=== PATIENT | female | born 1990 | race Caucasian/White ===

== ENCOUNTER 2024-06-18 16:04 | Emergency (ER) | payer OTHER, SELFPAY ==
[2024-06-18 16:15] VITALS: BP 118/70; PULSE 87; RESP 16; TEMP 36.8; O2SAT 98; BMI 31.2
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
[2024-06-18 16:59] LABS: MANUAL DIFF FLAG NO
[2024-06-18 17:01] LABS: Basophils Percent Auto 0.2 % (0-2); Eosinophils Absolute Auto 0.2 X10*3/uL (0.0-0.4); Eosinophils Percent Auto 1.9 % (0-4); Hematocrit 37.3 % (37.0-47.0); Hemoglobin 12.4 g/dl (12.0-16.0); Imm Gran Abs Auto 0.03 X10*3/uL (0.00-0.03); Imm Gran Pct Auto 0.4 % (0.0-0.4); Lymphocytes Percent Auto 24.2 % (20-40); Mean Corpuscular HGB Conc 33.2 g/dl (31.0-35.0); Mean Corpuscular Hemoglobin 26.7 pg (27.0-33.0); Mean Corpuscular Volume 80.4 fL (80.0-98.0); Mean Platelet Volume 10.5 fL (9.4-12.3); Monocytes Absolute Auto 0.5 X10*3/uL (0.1-1.2); Monocytes Percent Auto 6.2 % (2-11); Neutrophils Absolute Auto 5.5 x10*3/uL (2.0-8.3); Neutrophils Percent Auto 67.1 % (45-73); Platelet Count 332 X10*3/uL (160-400); Red Blood Count 4.64 X10*6/uL (4.20-5.50); Red Cell Distribution Width 13.4 % (11.0-16.0); White Blood Count 8.3 X10*3/uL (4.8-10.8)
[2024-06-18 17:03] LABS: Appearance Urine Clear; Color Urine Yellow; Glucose Urine UA Negative (Negative); Leukocyte Esterase Urine Negative (Negative); Nitrite Urine Negative (Negative); PH 5.5 (5.0-9.0); Urine Blood Negative (Negative); Urine Ketones Trace mg/dL (Negative); Urine Protein Negative (Neg-Trace)
[2024-06-18 17:04] LABS: UPreg QC Valid YES; Urine Pregnancy NEGATIVE (NEGATIVE)
[2024-06-18 17:22] LABS: Alanine Aminotransferase 26 U/L (0-31); Albumin Level 4.3 g/dL (3.5-5.0); Alkaline Phosphatase 85 U/L (39-117); Anion Gap 12 (12-20); Aspartate Amino Transferase 25 U/L (5-31); Bilirubin Total 0.3 mg/dL (0.0-1.0); Blood Urea Nitrogen 13 mg/dL (9-16); Calcium 9.6 mg/dL (8.4-10.2); Carbon Dioxide 23 mmol/L (22-29); Chloride 106 mmol/L (96-108); Creatinine Clr Calc Pharmacy 107.7; Estimated Glomerular Filt Rate > 60; Glucose Random 72 mg/dL (60-115); Potassium 4.1 mmol/L (3.3-5.1); Sodium 137 mmol/L (135-145)
[2024-06-18 17:24] LABS: HCG Quantitative < 2 mIU/mL
[2024-06-18] MEDS: cefTRIAXone sodium 500 MG, Lidocaine HCl 1 % MPF 1 ML IM (18:33)
[2024-06-18] MEDS: metroNIDAZOLE 500 MG TABLET PO (18:33)
[2024-06-18] MEDS: Ondansetron ODT 4 MG TAB.RAPDIS TRANSLINGU (18:33)
[2024-06-18] MEDS: Doxycycline Monohydrate 100 MG CAPSULE PO (18:33)
[2024-06-18] MEDS: levonorgestreL 1.5 MG TABLET PO (18:33)
[2024-06-18 18:37] VITALS: BP 118/70; PULSE 87; RESP 16; TEMP 36.8; O2SAT 98
[2024-06-19 03:16] LABS: CT PCR NOT DETECTED (Not Detect.); NG PCR NOT DETECTED (Not Detect.)
[2024-06-19 08:05] LABS: HBS Num1 179.88 mIU/mL (0-7.99); HBsAGNum1 0.36 S/CO (0.00-0.99); HIV AB/AG Nonreactive (Nonreactive); HIV Num 1 0.06 S/CO (0.00-0.99); Hepatitis A Antibody IgM 0.43 Index (0-0.79); Hepatitis B Core Antibody Nonreactive (Nonreactive); Hepatitis B Surface Antigen Negative (Negative); ~Hepatitis A Antibody IgM Nonreactive (Nonreactive); ~Hepatitis B Surface Antibody REACTIVE (Nonreactive); ~Hepatitis C Antibody Nonreactive (Nonreactive)
[2024-06-19 08:09] LABS: Bacterial Vaginosis PCR POSITIVE (Negative); Candida Group PCR NOT DETECTED (Not Detect); Candida glab krusei PCR NOT DETECTED (Not Detect); Trichomonas vaginalis PCR NOT DETECTED (Not Detect)
== END 2024-06-18 18:54 | disposition home or self-care (01) ==
PROVIDERS: Nurse Practitioner Family; Physician Assistant Medical; Emergency Provider Internal Medicine
DX: T76.21XA Adult sexual abuse, suspected, initial encounter (principal); Z20.2 Contact with and (suspected) exposure to infections with a predominantly sexual mode of transmission; Z20.828 Contact with and (suspected) exposure to other viral communicable diseases; Z79.899 Other long term (current) drug therapy
CPT/HCPCS: 36415; 80053; 81003; 81025; 81515; 84702; 85025; 86704; 86706; 86709; 86803; 87340; 87389; 87491; 87591; 96365; 96372; 99282; 99284; J0696; J2003

== ENCOUNTER 2025-03-08 09:45 | Emergency (ER) | payer OTHER, SELFPAY ==
--- NOTE | ~2025-03-08 | US_ITS ---
EXAMINATION: US TRIPLEX LOWER EXTREMITY, RIGHT CLINICAL INFORMATION: pain and swelling, worse with ambulation, right lower extremity COMPARISON: None available. TECHNIQUE: Color-flow triplex imaging with spectral analysis and compression Doppler were performed on the right lower extremity. FINDINGS: Respiratory variation, normal compression and augmented flow are noted throughout the right lower extremity. The visualized common femoral vein, superficial femoral vein, profunda femoral vein, popliteal vein and midcalf peroneal and posterior tibial venous segments show no evidence of deep venous thrombosis. US/US venous duplex LE RT IMPRESSION: No evidence of deep venous thrombosis involving the right lower extremity. Electronically signed by: Lucian Funes MD 03/08/2025 12:09 PM EDT
[2025-03-08 10:03] VITALS: BP 123/68; PULSE 94; RESP 18; TEMP 36.5; O2SAT 98; BMI 27.0
--- NOTE | 2025-03-08 10:03 | ED.GENADULT ---
HPI - General Adult General Chief complaint: Abdominal Pain Stated complaint: abd pain, r leg pain Time Seen by Provider: 03/08/25 10:54 Source: patient Mode of arrival: ambulatory Limitations: no limitations History of Present Illness ED Provider: HPI narrative: 34-year-old woman, presenting with multiple complaints, what she is addressed with me as mostly mid back pain with pulling to her right leg in the back of the knee, she was concerned whether she has a blood clot, she recently saw her PCP and I reviewed her blood work on March 06 and she had an ultrasound of the gallbladder did not reveal any acute findings, she has hepatic steatosis, she smokes tobacco, no drug use, tries to be cautious with anti-inflammatories, currently on Zepbound. No IV drug use, fevers or chills, she is not on control pills. Related Data Previous Rx's ?Medication ?Instructions ?Recorded doxycycline hyclate 100 mg tablet 100 mg PO BID 14 days #28 tabs 06/18/24 metronidazole 500 mg tablet 500 mg PO BID #14 tabs 06/18/24 lidocaine 4 % topical patch 1 patch topical DAILY PRN pain 5 03/08/25 (Aspercreme (lidocaine)) days #10 ea Allergies Allergy/AdvReac Type Severity Reaction Status Date / Time No Known Allergies Allergy Verified 03/08/25 10:06 Review of Systems Constitutional: Constitutional: Reports as per [facility] Social History Social History Advance Directives: No Advance Directives Information Provided: No Do you have a plan to hurt others: No Plan Physical Exam ED Vital Signs: Vital Signs - 24 hr 03/08/25 10:03 03/08/25 12:28 Temperature 97.7 F Pulse Rate 94 81 Respiratory Rate 18 16 Blood Pressure 123/68 108/67 Pulse Oximetry 98 100 Oxygen Delivery Method Room Air Room Air BMI result Body Mass Index 27.0 Const Other: General: ?Appears of stated age ? ?PERRLA, EOMI, MMM, ? Neck: Supple, no LAD ? ?CV: RRR, no obvious murmurs appreciated ? ?Resp: ?No wheezing rales rhonchi no stridor moving air well ? Abd: ?Bowel sounds are present, no tenderness no rebound no rigidity, no CVA tenderness ? ?MSK: FROM, strength 5/5 all extremities, I did not appreciate asymmetric edema, negative straight leg raise test, has good power bilateral lower extremities, has been ambulatory, somewhat kyphotic, with mid back paraspinal tenderness more to the right without midline tenderness or step-offs ? Skin: Warm, dry, intact, ? ?Neuro: ?Alert and oriented x3, moving upper and lower extremities symmetrically, no obvious facial asymmetry noted, cranial nerves 2-12 intact Course Course Course Narrative: This is a rapid medical exam performed by Matthew Jasso NP: Additional HPI, ROS, PE not included below will be deferred to primary provider. Patient is a 34y/o F presenting to the ED for evaluation of RUQ abd pain and nausea x 2 weeks as well as right calf pain which began at 3pm yesterday, worse with ambulation. Has seen PCP regarding the abdominal pain, told she had fatty liver based on u/s, told GB and pancreas looked ok. Plan: labs, u/s RLE Medications Administered Discontinued Medications Generic Name Dose Route Start Last Admin Trade Name Freq PRN Reason Stop Dose Admin Lidocaine 1 patch 03/08/25 11:36 03/08/25 12:06 Lidocaine 4 % Patch Adh..Patch TRANSDERMA 03/08/25 11:37 1 patch ONCE ONE Administration Protocol Lidocaine HCl 10 ml 03/08/25 11:36 03/08/25 12:07 Lidocaine Hcl 1 % 20 Ml Vial INFILTRATI 03/08/25 11:37 10 ml ONCE ONE Administration Procedures Procedure Narrative Procedure Narrative: CPT 88486: ?1 or 2 muscle groups injected single or multiple trigger points Time-out: A time-out was performed to confirm the correct patient, procedure, site, and consent. Technique: The patient was placed in a [supine/prone/sitting] position. The skin overlying the trigger points was cleansed with [alcohol prep pad]. The trigger points were palpated and marked. Stabilization and Injection: The provider stabilized the muscle tissue by pinching the trigger point between their fingers. Using [21-gauge, 1.5-inch needle], the medication was injected with a fanning motion into the affected muscles. Medication: A solution of ?[10 mL of 1% lidocaine ] was injected. Muscles Injected: A total of [1 #] muscles were injected on the left side, paraspinal muscles Post-Procedure: Patient Response: The patient tolerated the procedure well and reported significant improvement in their pain. Follow-up: The injection sites were cleaned, and a bandage was applied. The patient was instructed to [apply ice for 15 minutes as needed] and advised on potential post-injection soreness. Assessment and Plan: The injection was successful, resulting in ?decreased pain and improved range of motion. Follow-up will be scheduled as needed. Medical Decision Making Medical Decision Making [facility] Narrative: 11:46 AM 03/08/2025 (Dr. Federico Aparicio): Patient is presenting with mid back pain, right-sided paraspinal spasm radiating along her ribcage without any rashes, she has recently had workup of her gallbladder had an unremarkable ultrasound without cholecystitis, there was some hepatosteatosis, she also had urine done, LFTs CBC all of which I checked on her phone on my chart, some of this blood work has been checked here as well and that is reassuring, patient is on Zepbound, trying to lose another 20 something lb, no risk factors for inflammatory condition of the spine such as diskitis osteomyelitis, no neurologic deficits to suspect spinal epidural abscess or cord compression, I did offer lidocaine injections to the trigger points along her back which she gave a verbal consent for, she also have an ultrasound of the right lower extremity to make sure there was no DVT though my suspicion for that is very low Lab Data 03/08/25 11:15 03/08/25 11:15 Labs: Lab Results 03/08/25 Range/Units 11:15 WBC 7.5 (4.8-10.8) X10*3/uL RBC 4.81 (4.20-5.50) X10*6/uL Hgb 12.6 (12.0-16.0) g/dl Hct 38.1 (37.0-47.0) % MCV 79.2 L (80.0-98.0) fL MCH 26.2 L (27.0-33.0) pg MCHC 33.1 (31.0-35.0) g/dl RDW 13.0 (11.0-16.0) % Plt Count 303 (160-400) X10*3/uL MPV 11.0 (9.4-12.3) fL Immature Gran % (Auto) 0.4 (0.0-0.4) % Neut % (Auto) 63.6 (45-73) % Lymph % (Auto) 26.4 (20-40) % [place] % (Auto) 6.3 (2-11) % Eos % (Auto) 2.9 (0-4) % Baso % (Auto) 0.4 (0-2) % Lymph # (Auto) 2.0 (1.2-4.9) X10*3/uL [place] # (Auto) 0.5 (0.1-1.2) X10*3/uL Eos # (Auto) 0.2 (0.0-0.4) X10*3/uL Baso # (Auto) 0.0 (0.0-0.2) X10*3/uL Abs Immat Gran (auto) 0.03 (0.00-0.03) X10*3/uL Absolute Neuts (auto) 4.8 (2.0-8.3) x10*3/uL Absolute Nucleated RBC 0.000 (0.0-0.012) X10*3/uL Nucleated RBC % (auto) 0.0 (0.0-0.2) /100WBC PT 11.5 (10.9-12.4) SEC INR 1.0 (0.9-1.1) Sodium 138 (135-145) mmol/L Potassium 4.2 (3.3-5.1) mmol/L Chloride 110 H (96-108) mmol/L Carbon Dioxide 22 (22-29) mmol/L Anion Gap 10 L (12-20) BUN 8 L (9-16) mg/dL Creatinine 0.72 (0.5-1.4) mg/dL Estim Creat Clear Calc 100.6 Estimated GFR > 60 Random Glucose 75 (60-115) mg/dL Calcium 9.5 (8.4-10.2) mg/dL Total Bilirubin 0.3 (0.0-1.0) mg/dL AST 21 (5-31) U/L ALT 13 (0-31) U/L Alkaline Phosphatase 90 (39-117) U/L Total Protein 8.1 H (6.5-8.0) g/dL Albumin 4.9 (3.5-5.0) g/dL Lipase 21 (8-78) U/L Beta HCG, Quant < 2 mIU/mL Discharge Plan Discharge Clinical Impression: Midline thoracic back pain Patient Disposition: Home, Self-Care Additional Instructions: outside upholsterer [id number] capsaicin ointment patches, apply them to the mid back area, they woke very well for the spasm, do all the things that you love to do: Gentle stretching, you can apply ice packs or heat packs to the area, Tylenol 975 mg every 6 hours around the clock, you can take ibuprofen 200 mg every 6 hours with food for inflammation Your blood work, ultrasound of the leg has been reassuring The injection site maybe a little sore, but I am hoping that it is going to resolve the spasm but I recommend that you ice the area today for about 15-20 minutes Prescriptions: New lidocaine [Aspercreme (lidocaine)] 4 % adhesive patch,medicated 1 patch topical DAILY PRN (Reason: pain) 5 Days Qty: 10 0RF No Action metronidazole 500 mg tablet 500 mg PO BID Qty: 14 0RF doxycycline hyclate 100 mg tablet 100 mg PO BID 14 Days Qty: 28 0RF Print Language: Romanian
[2025-03-08 11:21] LABS: MANUAL DIFF FLAG NO
[2025-03-08 11:26] LABS: Hematocrit 38.1 % (37.0-47.0); Hemoglobin 12.6 g/dl (12.0-16.0); Imm Gran Abs Auto 0.03 X10*3/uL (0.00-0.03); Imm Gran Pct Auto 0.4 % (0.0-0.4); Lymphocytes Absolute Auto 2.0 X10*3/uL (1.2-4.9); Mean Corpuscular HGB Conc 33.1 g/dl (31.0-35.0); Mean Corpuscular Hemoglobin 26.2 pg (27.0-33.0); Mean Corpuscular Volume 79.2 fL (80.0-98.0); NRBC Abs Auto 0.000 X10*3/uL (0.0-0.012); NRBC Pct Auto 0.0 /100WBC (0.0-0.2); Platelet Count 303 X10*3/uL (160-400); Red Blood Count 4.81 X10*6/uL (4.20-5.50); White Blood Count 7.5 X10*3/uL (4.8-10.8)
[2025-03-08 11:30] LABS: INTERNATIONAL NORM RATIO 1.0 (0.9-1.1); Prothrombin Time 11.5 SEC (10.9-12.4)
[2025-03-08 11:45] LABS: Alanine Aminotransferase 13 U/L (0-31); Albumin Level 4.9 g/dL (3.5-5.0); Alkaline Phosphatase 90 U/L (39-117); Anion Gap 10 (12-20); Aspartate Amino Transferase 21 U/L (5-31); Blood Urea Nitrogen 8 mg/dL (9-16); Calcium 9.5 mg/dL (8.4-10.2); Carbon Dioxide 22 mmol/L (22-29); Chloride 110 mmol/L (96-108); Creatinine Clr Calc Pharmacy 100.6; Estimated Glomerular Filt Rate > 60; Lipase 21 U/L (8-78); Potassium 4.2 mmol/L (3.3-5.1); Sodium 138 mmol/L (135-145); Total Protein 8.1 g/dL (6.5-8.0)
[2025-03-08] MEDS: Lidocaine 4 % Patch ADH..PATCH 1 PATCH TRANSDERMA (12:06)
[2025-03-08] MEDS: Lidocaine HCl 1 % 20 ML VIAL 10 ML INFILTRATI (12:07)
--- NOTE | 2025-03-08 12:15 | PC.NURSE ---
patient a&ox3, rr equal/non labored, medications administered by provider. iv previously inserted/labs drawn- pt US performed. pt to discharge home.
[2025-03-08 12:28] VITALS: BP 108/67; PULSE 81; RESP 16; O2SAT 100
[2025-03-08 12:57] VITALS: BP 108/67; PULSE 81; RESP 16; TEMP 36.8; O2SAT 100
== END 2025-03-08 12:57 | disposition home or self-care (01) ==
PROVIDERS: Registered Nurse Emergency; Emergency Provider Emergency Medicine; PCP Internal Medicine
DX: M54.6 Pain in thoracic spine (principal); M79.604 Pain in right leg; R10.11 Right upper quadrant pain; K76.0 Fatty (change of) liver, not elsewhere classified
CPT/HCPCS: 20552; 36415; 80053; 83690; 84702; 85025; 85610; 93971; 99284; J2003

== ENCOUNTER → 2025-03-08 10:06 | Outpatient (BNV) | payer OTHER, SELFPAY | PROVIDERS: Emergency Provider Emergency Medicine; PCP Internal Medicine; Visit Provider Radiology Diagnostic Radiology | DX: M79.661 Pain in right lower leg (principal); M79.89 Other specified soft tissue disorders | CPT/HCPCS: 93971 ==